=== PATIENT | male | born 1990 | race Caucasian/White ===

== ENCOUNTER 2021-12-29 03:13 | Inpatient (IN) | payer OTHER ==
[~2021-12-29] VITALS: Ht 165.1 cm; Wt 71.8 kg
[2021-12-29] MEDS ORDERED: ABIL10TA9 PO (03:31)
[2021-12-29] MEDS ORDERED: LEXA1TAB2 PO (03:31)
[2021-12-29] MEDS ORDERED: MOM 30ML SUSPENSION UDC PO PRN (05:25)
[2021-12-29] MEDS ORDERED: traZODone 50 MG TAB PO PRN (05:25)
[2021-12-29] MEDS ORDERED: hydrOXYzine 25 MG TAB PO PRN (05:25)
[2021-12-29] MEDS ORDERED: ACETAMINOPHEN TAB 650MG DOSE (2X325MG) PO PRN (05:25)
[2021-12-29] MEDS ORDERED: OLANZapine ORAL DISINTEGRATING TAB 5MG PO PRN (05:25)
[2021-12-29] MEDS ORDERED: MAALOX 30 ML SUSP *UDC PO PRN (05:25)
[2021-12-29] MEDS ORDERED: ARIP1TAB10 PO (05:51)
[2021-12-29] MEDS ORDERED: HOME MED LIST COMPLETE! XX SCH (05:55)
[2021-12-29 06:05] VITALS: BP 142/86
[2021-12-29] MEDS: ARIPiprazole 15 MG TAB (AbiLIFY) PO SCH (09:43)
[2021-12-29] MEDS: ESCITALOPRAM OXALATE 10 MG TAB (LEXAPRO) PO SCH (09:43)
[2021-12-29 19:51] VITALS: BP 136/80
[2021-12-30 07:05] VITALS: BP 141/95
[2021-12-30] MEDS: PILL CUTTER 1 EACH XX PRN (09:10)
[2021-12-30] MEDS: ARIPiprazole 15 MG TAB (AbiLIFY) PO SCH (09:10)
[2021-12-30] MEDS: ESCITALOPRAM OXALATE 10 MG TAB (LEXAPRO) PO SCH (09:10)
[2021-12-30 20:23] VITALS: BP 126/79
[2021-12-31 06:00] VITALS: BP 130/86
[2021-12-31] MEDS: ARIPiprazole 15 MG TAB (AbiLIFY) PO SCH (09:25)
[2021-12-31] MEDS: ESCITALOPRAM OXALATE 10 MG TAB (LEXAPRO) PO SCH (09:25)
[2021-12-31] MEDS: PILL CUTTER 1 EACH XX PRN (09:25)
[2021-12-31 16:24] VITALS: BP 138/86
[2022-01-01 06:16] VITALS: BP 130/85
[2022-01-01] MEDS: ESCITALOPRAM OXALATE 10 MG TAB (LEXAPRO) PO SCH (09:06)
[2022-01-01] MEDS: PILL CUTTER 1 EACH XX PRN (09:06)
[2022-01-01] MEDS: ARIPiprazole 15 MG TAB (AbiLIFY) PO SCH (09:07)
== END 2022-01-01 13:58 | disposition home or self-care (01) | DRG 751 ==
LOC: M ED 03:13 → M ED INP 05:24 → M PSY 06:00
PROVIDERS: ADMIT Student in an Organized Health Care Education/Training Program; ATTEND Psychiatry & Neurology Psychiatry
DX: F32.2 Major depressive disorder, single episode, severe without psychotic features (principal); F43.23 Adjustment disorder with mixed anxiety and depressed mood; F41.1 Generalized anxiety disorder; Z63.8 Other specified problems related to primary support group; Z91.51 Personal history of suicidal behavior; Z88.0 Allergy status to penicillin; Z79.899 Other long term (current) drug therapy; Z56.6 Other physical and mental strain related to work

== ENCOUNTER → 2023-06-18 | Outpatient (REF) | payer OTHER ==
[~2023-06-18] MED LIST: ABIL10TA9 PO; ARIP1TAB10 PO; LEXA1TAB2 PO
== END ==
LOC: M LAB REF 21:28
PROVIDERS: ATTEND Physician Assistant
DX: J02.9 Acute pharyngitis, unspecified (principal)